=== PATIENT | male | born 1965 | race African-American/Black ===

== ENCOUNTER 2017-10-25 15:30 | Inpatient (IN) | payer MEDICARE, MEDICAID ==
--- NOTE | 2017-10-25 16:16 | ED Physician Chart ---
ED Chief Complaint/HPI - Patient Information Date Seen:: 10/25/17 Time Seen:: 15:45 Chief Complaint:: Agitation History of Present Illness:: onset x 3 days of agitation and hostile behavior; no report of trauma, SIs, H/As , neck pain, C/P, SOB, Abd. Pain, A/N/V/D/C, fever, chills, or urinary s/s Allergies:: Allergies Allergy/AdvReac Type Severity Reaction Status Date / Time WILLIAM Inhibitors Allergy Verified 10/25/17 15:49 Vitals:: Vital Signs - 8 hr 10/25/17 15:49 Temp 97.4 F HR 94 RR 16 BP 138/117 O2 Sat % 100 Historian:: Patient, EMS Review:: Nurse's Note Reviewed, Old Chart Reviewed, EMS run form Reviewed ED Review of Systems - Review of Systems General/Constitutional: No fever, No chills, No weight loss, No weakness, No diaphoresis, No edema, No loss of appetite Skin: No skin lesions, No rash, No bruising Head: No headache, No light-headedness Eyes: No loss of vision, No pain, No diplopia ENT: No earache, No nasal drainage, No sore throat, No tinnitus Neck: No neck pain, No swelling, No thyromegaly, No stiffness, No mass noted Cardio Vascular: No chest pain, No palpitations, No PND, No orthopnea, No edema Pulmonary: No SOB, No cough, No sputum, No wheezing GI: No nausea, No vomiting, No diarrhea, No pain, No melena, No hematochezia, No constipation, No hematemesis G/U: No dysuria, No frequency, No hematuria, No nacturia Musculoskeletal: No bone or joint pain, No back pain, No muscle pain Endocrine: No polyuria, No polydipsia Psychiatric: Prior psych history, Depression, Anxiety, No suicidal ideation, No homicidal ideation, No auditory hallucination, No visual hallucination Hematopoietic: No bruising, No lymphadenopathy Allergic/Immuno: No urticaria, No angioedema Neurological: No syncope, No focal symptoms, No weakness, No paresthesia, No headache, No seizure, No dizziness, No confusion, No vertigo ED Past Medical History - Past Medical History Obtainable: Yes Past Medical History: HTN, CAD, CVA/TIA, Dyslipidemia Family History: HTN Social History: Non Smoker, No Alcohol, No Drug Use, Single, Care Facility Surgical History: None Psychiatricy History: Depression, Bipolar Medication: Reviewed Family Medical History - Family Member Mother History Unknown: Yes ED Physical Exam - Physical Examination General/Constitutional: Awake, Well-developed, well-nourished, Alert, No distress, GCS 15, Non-toxic appearing, Ambulatory Head: Atraumatic Eyes: Lids, conjuctiva normal, PERRL, EOMI Skin: Nl inspection, No rash, No skin lesions, No ecchymosis, Well hydrated, No lymphadenopathy ENMT: External ears, nose nl, TM canals nl, Nasal exam nl, Lips, teeth, gums nl , Oropharynx nl, Tonsils nl Neck: Nontender, Full ROM w/o pain, No JVD, No nuchal rigidity, No bruit, No mass, No stridor Respiratory: Nl effort/Exclusion, Clear to Auscultation, No Wheeze/Rhonchi/Rales Cardio Vascular: No murmur, gallop, rubs, NL S1 S2, Carotid/Femoral/Distal pulses equal bilaterally Other Cardio Vascular comments:: Irregular Irregular Rhythm GI: No tenderness/rebounding/guarding, No organomegaly, No hernia, Normal BS's, Nondistended, No mass/bruits, No McBurney tenderness, Rectum exam nl : No CVA tenderness Extremities: No tenderness or effusion, Full ROM, normal strength in all extremities, No edema, Normal digits & nails Neuro/Psych: Alert/oriented, DTR's symmetric, Normal sensory exam, Normal motor strength, Judgement/insight normal, Mood normal, Normal gait, No focal deficits Other Neuro/Psych comments:: + Psychomotor Agitation; no SIs; Mood/Affect: Labile Misc: Normal back, No paraspinal tenderness ED Labs/Radiology/EKG Results - Lab Results Comments:: H/H: 10.9/32.6; WBC: 11.1; K+: 3.3 - Radiology Results Comments:: NAD - EKG Interpretations EKG Time:: 17:06 Rate & Rhythm: 76; Atrial Fibrillation Comments:: T-Wave Inversions; LVH ED Septic Shock - . Is Septic Shock (SBP<90, OR Lactate>4 mmol\L) present?: No - <6hrs of presentation: Vital Signs: Vital Signs - 8 hr 06/26/18 15:49 Temp 97.4 F HR 94 RR 16 BP 138/117 O2 Sat % 100 ED Reassessment (Disposition) - Reassessment Reassessment Condition:: Improved - Diagnosis Diagnosis:: Agitation; Psychosis; Medical Clearance; Atrial Fibrillation; Myocardial Ischemia; Hypokalemia; Leukocytosis; Anemia - Aftercare/Follow up Instructions Aftercare/Follow-Up Instructions:: Counseled pt regarding lab results/diagnosis & need follow up, Counseled pt & family regarding lab results/diagnosis & need follow up - Patient Disposition Discharge/Transfer:: Acute Care w/in this hosp Accepting Physician:: Dr. Sotomayor Time Called:: [id number] Time Responded:: 17:30 Admitted to:: Telemetry Spoke to:: Dr. Sotomayor Admitting Medical Physician:: Dr. Sotomayor Condition at Disposition:: Stable, Improved
[2017-10-25 17:04] LABS: % BASOPHILS 0.5 % (0.0-2.0); % EOSINOPHILS 0.8 % (0.0-5.0); % LYMPHOCYTES 13.6 % (20.0-50.0); % MONOCYTES 5.7 % (2.0-10.0); % NEUTROPHILS 79.4 % (40.0-80.0); BASOPHILE ABSOLUTE 0.1 Th/cumm (0-0.2); EOSINOPHILE ABSOLUTE 0.1 Th/cmm (0.1-0.4); HEMATOCRIT 32.6 % (41.0-60); HEMOGLOBIN 10.9 gm/dL (12-16); LYMPHOCYTE ABSOLUTE 1.5 Th/cmm (1.5-3.0); MEAN CELL VOLUME 88.1 fl (80-99); MEAN CORPUSCULAR HEMOGLOBIN 29.5 pg (26.0-30.0); MEAN CORPUSCULAR HGB CONC 33.5 pg (28.0-36.0); MEAN PLATELET VOLUME 7.6 fl; MONOCYTE ABSOLUTE 0.6 Th/cmm (0.3-1.0); NEUTROPHILE ABSOLUTE 8.8 Th/cmm (1.8-8.0); PLATELET COUNT 394 Th/cmm (150-400); RED CELL DISTRIBUTION WIDTH 14.2 % (11.5-20.0); WHITE BLOOD COUNT 11.1 Th/cmm (4.8-10.8)
[2017-10-25 17:20] LABS: ALB/GLOB RATIO 1.1 (1.0-1.8); ALBUMIN 3.9 gm/dL (4.2-5.5); ALKALINE PHOSPHATASE 39 U/L (34-104); ANION GAP 12.6 (7.0-16.0); BILIRUBIN,TOTAL 0.3 mg/dL (0.3-1.0); BUN - UREA NITROGEN 14 mg/dL (7-25); CALCIUM SERUM 9.6 mg/dL (8.6-10.3); CARBON DIOXIDE 26.7 mEq/L (21.0-31.0); CHLORIDE 101 mEq/L (98-107); CHOLESTEROL 90 mg/dL (<200); CREATININE - SERUM 1.2 mg/dL (0.7-1.3); GFR AFRICAN-AMERICAN > 60.0 ml/min (>90); GFR NON AFRICAN-AMERICAN > 60.0 ml/min; GLUCOSE 116 mg/dL (70-105); HDL -HIGH DENSITY LIPOPROTEIN 29 mg/dL (23-92); POTASSIUM SERUM 3.3 mEq/L (3.5-5.1); SALICYLATES (ASPIRIN) < 25.0 mg/L (30.0-100.0); SGOT 11 U/L (13-39); SGPT/ALT 4 U/L (7-52); SODIUM SERUM 137 mEq/L (136-145); TOTAL PROTEIN,SERUM 7.5 gm/dL (6.0-8.3); TRIGLYCERIDES 84 mg/dL (<150)
[2017-10-25 17:26] LABS: ACETAMINOPHEN < 10.0 ug/mL (10.0-30.0)
[2017-10-25] MEDS ORDERED: Potassium Chloride 20 mEq ER Tab PO ONE ×2 (18:39→18:42)
[2017-10-25] MEDS ORDERED: Haloperidol Lactate 5 mg/mL 1mL Vial IM STA (18:40)
[2017-10-25] MEDS ORDERED: Haloperidol Lactate 5 mg/mL 1mL Vial ONE (18:48)
[2017-10-25] MEDS ORDERED: Maalox 30 mL Cup PO PRN (21:39)
[2017-10-25] MEDS ORDERED: Magnesium Hydroxide (MOM) 30 mL UDC PO PRN (21:39)
[2017-10-25] MEDS ORDERED: Albuterol Nebulizer 2.5mg/3mL HHN PRN (22:41)
--- NOTE | 2017-10-26 07:14 | Diagnostic Imaging Report ---
Oral chest x-ray HISTORY: Cough The heart size appears somewhat generous. No focal pulmonary processes. No hilar or mediastinal abnormalities. IMPRESSION: 1. No acute abnormalities 2. Suggestion of a somewhat generous heart size
[2017-10-26] MEDS: Pantoprazole 40 mg EC Tab PO SCH (08:45)
[2017-10-26] MEDS: Multivitamin Tab PO SCH (08:45)
[2017-10-26] MEDS: Benztropine 1 MG TAB PO SCH (08:46)
[2017-10-26] MEDS ORDERED: SALMETEROL INH SCH (09:00)
[2017-10-26] MEDS ORDERED: FLUTICASONE INH SCH (09:00)
[2017-10-26] MEDS ORDERED: Budesonide 0.5 Mg/2 mL Ud HHN SCH (09:00)
[2017-10-26] MEDS: Budesonide 0.5 Mg/2 mL Ud HHN SCH (19:37)
[2017-10-26] MEDS: Atorvastatin Calcium 10 MG TAB PO SCH (21:37)
--- NOTE | 2017-10-27 01:00 | Psychosocial Evaluation ---
DATE OF SERVICE: PSYCHIATRIC INITIAL EVALUATION AND MENTAL STATUS EXAM THE PATIENT'S AGE: 51. SEX: Male. PHYSICIAN: Dr. Kurtz. CHIEF COMPLAINT: Aggressive behavior and hitting staff. HISTORY OF PRESENT ILLNESS: The patient is a 51-year-old male, who was transferred from [facility] because of increased agitation and aggression and the patient was hitting staff and was not able to follow directions. The patient has been extremely angry and in irritable mood. Also, has been restless. The patient also has been having difficulty with his mood. The patient also has been confused. The patient during the interview was going around with wheelchair pointing out with his finger to myself and sometimes imaginary objects and was increasingly angry and agitated. He also has difficulty expressing himself and feeling and he was actively responding. The patient also was not able to follow any directions. The patient also was paranoid. Also seems to be responding to stimuli. PAST PSYCHIATRIC HISTORY: The patient has history of what seems to be psychosis and agitation. The patient also seems to have history of schizoaffective disorder. MEDICATIONS: The patient is taking Abilify, Depakote, and Paxil. PAST MEDICAL HISTORY: The patient has atrial fib as well as myocardial ischemia hypokalemia, leukocytosis, and anemia according to our report. SOCIAL HISTORY: The patient lives in [facility]. No known alcohol or drug use. ALLERGIES: No known allergies. MENTAL STATUS EXAMINATION: The patient appears older than his stated age. On wheelchair. The patient denied any hallucinations or delusions, but actively responding to stimuli and the patient is agitated and in irritable mood. The patient denies any thoughts of suicide or homicide. The patient is alert and oriented to the situation, person and place, but not the date. Intact immediate, recent and remote memories. Poor insight. Poor judgment. He seems to be of low average intelligence based on his verbal ability. ASSESSMENT: PRIMARY DIAGNOSIS: Schizoaffective disorder, bipolar type, severe, with psychotic features. TREATMENT PLAN: We will monitor the patient's behavior and condition closely. We will start individual as well as milieu psychotherapy. We will monitor psychotropic medications. We will increase Abilify to 30 mg everyday and we will continue Depakote and Paxil and we will monitor Depakote blood level. ESTIMATED LENGTH OF STAY: 5-7 days. THE PATIENT'S STRENGTHS AND WEAKNESSES: The patient's strength is not clear at this time. Weaknesses is his poor impulse control and his agitation. AFTER DISCHARGE PLAN: The patient will be return to [facility] with plans for outpatient treatment and follow up there. CRITERIA FOR DISCHARGE: The patient will not be psychotic and will stabilize psychotropic medications and the patient will have better impulse control. JOB# [id number]
--- NOTE | 2017-10-27 06:14 | History & Physical ---
ADMIT DATE: 10/25/2017 ADMITTING PHYSICIAN: Madan Kurtz M.D. REASON FOR ADMISSION: Psychiatric disorder. HISTORY OF PRESENT ILLNESS: This 51-year-old male with underlying history of hyperlipidemia, seizure disorders, diabetes, mental disorder, was admitted for evaluation of underlying psychiatric ____. The patient said he is doing fine. Denies any chest pain. No palpitations or any dizziness or any other complaints. PAST MEDICAL HISTORY: As per HPI. PAST SURGICAL HISTORY: No ____. FAMILY HISTORY: Noncontributory. SOCIAL HISTORY: No reported alcohol, tobacco or street drug use. MEDICATIONS: Tylenol, Norvasc, Abilify, aspirin, Lipitor, Cogentin, Pulmicort, Depakote, Colace, Keppra, Ativan, milk of mag, metformin, Theragran, Protonix, Paxil, Ambien, ____. REVIEW OF SYSTEMS: No reported fever, no chills, no nausea, no abdominal pain, no diarrhea, no constipation, no chest pain, no headache, no double vision, no trouble speech or any other complaints. PHYSICAL EXAMINATION: VITAL SIGNS: Temperature 97.2, pulse 90, respirations ____, blood pressure ____ on room air. HEART: S1, S2 normal. LUNGS: Clear to auscultation. ABDOMEN: Soft, nontender. No guarding. No rebound. NEUROLOGIC: Awake, but somewhat confused, follows commands. EXTREMITIES: No edema. LABORATORY DATA: Available laboratory data has been reviewed. ASSESSMENT: Diabetes, hypertension, hyperlipidemia, seizure disorders, mental disorders, hypokalemia, and leukocytosis. PLAN: The patient will be continued on Glucophage, Keppra, Depakote ER, Pulmicort, Cogentin, Lipitor, Ecotrin, Norvasc, bronchodilator treatment. Monitor vital signs. Repeat EKG was ordered, which was normal sinus rhythm. Psych management per psychiatrist. The patient is medically stable for surgery [facility]. Thank you Dr. Kurtz for allowing to see this patient. JOB# [id number]
[2017-10-27] MEDS: Budesonide 0.5 Mg/2 mL Ud HHN SCH ×2 (06:51→18:27)
[2017-10-27] MEDS: Multivitamin Tab PO SCH (09:25)
[2017-10-27] MEDS: Benztropine 1 MG TAB PO SCH (09:26)
[2017-10-27] MEDS: Pantoprazole 40 mg EC Tab PO SCH (09:26)
[2017-10-27] MEDS: Atorvastatin Calcium 10 MG TAB PO SCH (21:17)
--- NOTE | 2017-10-27 21:51 | General Progress Note ---
Subjective - Review of Systems Service Date: 10/28/17 Subjective: Patient seen and examined doing better denied chest pain or palpitation Objective - Results Result Diagrams: 10/25/17 16:56 10/25/17 16:56 Recent Labs: Laboratory Last Values WBC 11.1 Th/cmm (4.8-10.8) H 10/25/17 16:56 RBC 3.70 Mil/cmm (4.30-5.70) L 10/25/17 16:56 Hgb 10.9 gm/dL (12-16) L 10/25/17 16:56 Hct 32.6 % (41.0-60) L 10/25/17 16:56 MCV 88.1 fl (80-99) 10/25/17 16:56 MCH 29.5 pg (26.0-30.0) 10/25/17 16:56 MCHC Differential 33.5 pg (28.0-36.0) 10/25/17 16:56 RDW 14.2 % (11.5-20.0) 10/25/17 16:56 Plt Count 394 Th/cmm (150-400) 10/25/17 16:56 MPV 7.6 fl 10/25/17 16:56 Neutrophils % 79.4 % (40.0-80.0) 10/25/17 16:56 Lymphocytes % 13.6 % (20.0-50.0) L 10/25/17 16:56 Monocytes % 5.7 % (2.0-10.0) 10/25/17 16:56 Eosinophils % 0.8 % (0.0-5.0) 10/25/17 16:56 Basophils % 0.5 % (0.0-2.0) 10/25/17 16:56 Sodium 137 mEq/L (136-145) 10/25/17 16:56 Potassium 3.3 mEq/L (3.5-5.1) L 10/25/17 16:56 Chloride 101 mEq/L (98-107) 10/25/17 16:56 Carbon Dioxide 26.7 mEq/L (21.0-31.0) 10/25/17 16:56 Anion Gap 12.6 (7.0-16.0) 10/25/17 16:56 BUN 14 mg/dL (7-25) 10/25/17 16:56 Creatinine 1.2 mg/dL (0.7-1.3) 10/25/17 16:56 Est GFR ( Amer) > 60.0 ml/min (>90) 10/25/17 16:56 Est GFR (Non-Af Amer) > 60.0 ml/min 10/25/17 16:56 BUN/Creatinine Ratio 11.7 10/25/17 16:56 Glucose 116 mg/dL (70-105) H 10/25/17 16:56 Hemoglobin A1c % 5.0 % (4.0-6.0) 10/25/17 16:56 Calcium 9.6 mg/dL (8.6-10.3) 10/25/17 16:56 Total Bilirubin 0.3 mg/dL (0.3-1.0) 10/25/17 16:56 AST 11 U/L (13-39) L 10/25/17 16:56 ALT 4 U/L (7-52) L 10/25/17 16:56 Alkaline Phosphatase 39 U/L (34-104) 10/25/17 16:56 Troponin I < 0.01 ng/mL (0.01-0.05) L 10/25/17 16:56 Total Protein 7.5 gm/dL (6.0-8.3) 10/25/17 16:56 Albumin 3.9 gm/dL (4.2-5.5) L 10/25/17 16:56 Globulin 3.6 gm/dL 10/25/17 16:56 Albumin/Globulin Ratio 1.1 (1.0-1.8) 10/25/17 16:56 Triglycerides 84 mg/dL (<150) 10/25/17 16:56 Cholesterol 90 mg/dL (<200) 10/25/17 16:56 LDL Cholesterol Direct 46 mg/dL (75-193) L 10/25/17 16:56 HDL Cholesterol 29 mg/dL (23-92) 10/25/17 16:56 TSH 0.69 uIU/ml (0.34-5.60) 10/25/17 16:16 Salicylates < 25.0 mg/L (30.0-100.0) L 10/25/17 16:56 Acetaminophen < 10.0 ug/mL (10.0-30.0) L 10/25/17 16:56 Ethyl Alcohol < 10 mg/dL (0-10) 10/25/17 16:56 - Physical Exam Vitals and I&O: Vital Signs Temp 97.6 F 10/27/17 20:00 Pulse 76 10/27/17 20:00 Resp 19 10/27/17 20:00 BP 129/76 10/27/17 20:00 Pulse Ox 94 10/27/17 20:00 Intake & Output 10/27/17 10/27/17 10/28/17 06:59 18:59 06:59 Intake Total 1080 Balance 1080 Intake: Oral 1080 Other: # Voids 2 Active Medications: Current Medications Acetaminophen (Tylenol) 650 mg PO Q4HR PRN PRN Reason: Mild Pain / Temp above 100 Stop: 12/24/17 21:38 Al Hydrox/Mg Hydrox/Simethicone (Maalox) 30 ml PO Q4HR PRN PRN Reason: GI DISTRESS Stop: 12/24/17 21:38 Albuterol Sulfate (Albuterol 2.5mg/3ml Neb Ud) 2.5 mg HHN Q6H PRN PRN Reason: Shortness of Breath Stop: 12/24/17 22:40 Amlodipine Besylate (Norvasc) 10 mg PO DAILY [facility] Stop: 12/25/17 08:59 Last Admin: 10/27/17 09:25 Dose: 10 mg Aripiprazole (Abilify) 30 mg PO HS [facility]; Protocol Stop: 12/25/17 20:59 Last Admin: 10/27/17 21:18 Dose: 30 mg Aspirin (Ecotrin) 81 mg PO DAILY [facility] Stop: 12/25/17 08:59 Last Admin: 10/27/17 09:26 Dose: 81 mg Atorvastatin Calcium (Lipitor) 10 mg PO HS [facility]; Protocol Stop: 12/25/17 20:59 Last Admin: 10/27/17 21:17 Dose: 10 mg Benztropine Mesylate (Cogentin) 1 mg PO DAILY [facility] Stop: 12/25/17 08:59 Last Admin: 10/27/17 09:26 Dose: 1 mg Bisacodyl (Dulcolax 10 Mg Supp) 10 mg RC DAILY PRN PRN Reason: Constipation Stop: 12/24/17 22:10 Budesonide (Pulmicort) 0.5 mg HHN BIDRT [facility] Stop: 12/25/17 18:59 Last Admin: 10/27/17 18:27 Dose: 0.5 mg Divalproex Sodium (Depakote Er) 500 mg PO BID [facility]; Protocol Stop: 12/25/17 08:59 Last Admin: 10/27/17 16:42 Dose: 500 mg Docusate Sodium (Colace) 100 mg PO Q12H PRN PRN Reason: Constipation Stop: 12/24/17 22:10 Levetiracetam (Keppra) 1,000 mg PO BID [facility] Stop: 12/25/17 08:59 Last Admin: 10/27/17 16:42 Dose: 1,000 mg Lorazepam (Ativan) 0.5 mg PO Q4HR PRN; Protocol PRN Reason: Anxiety Stop: 11/24/17 21:38 Last Admin: 10/26/17 15:02 Dose: 0.5 mg Magnesium Hydroxide (Milk Of Magnesia) 30 ml PO HS PRN PRN Reason: Constipation Metformin HCl (Glucophage) 500 mg PO BID [facility] Stop: 12/25/17 08:59 Last Admin: 10/27/17 16:42 Dose: 500 mg Multivitamins/Vitamin C (Theragran) 1 tab PO DAILY [facility] Stop: 12/25/17 08:59 Last Admin: 10/27/17 09:25 Dose: 1 tab Pantoprazole Sodium (Protonix) 40 mg PO DAILY [facility] Stop: 12/25/17 08:59 Last Admin: 10/27/17 09:26 Dose: 40 mg Paroxetine HCl (Paxil) 20 mg PO DAILY [facility]; Protocol Stop: 12/25/17 08:59 Last Admin: 10/27/17 09:25 Dose: 20 mg Zolpidem Tartrate (Ambien) 5 mg PO HS PRN PRN Reason: Insomnia Stop: 12/24/17 21:38 Cardiovascular: Regular rate Lungs: Clear to auscultation Assessment/Plan - Assessment Assessment: HTN HYPERLIPIDEMIA SEIZURE DISORDER NICOTINE DEPENDANCY - Plan Plan: Continue current treatment Smoking cessation discussed Psych managment per psychiatrist
[2017-10-28] MEDS: Budesonide 0.5 Mg/2 mL Ud HHN SCH ×2 (07:10→20:02)
[2017-10-28] MEDS: Multivitamin Tab PO SCH (08:57)
[2017-10-28] MEDS: Pantoprazole 40 mg EC Tab PO SCH (08:58)
[2017-10-28] MEDS: Benztropine 1 MG TAB PO SCH (09:02)
--- NOTE | 2017-10-28 19:12 | Progress Notes ---
DATE: SUBJECTIVE: Chart reviewed and the patient interviewed. Also discussed the patient's condition with the staff and reviewed records and labs. The patient is still extremely irritable and is extremely agitated. The patient also is having difficulty following directions and he is still going around with a wheelchair interrupting everybody he sees. He is getting agitated and aggressive when he does not get an answer. Also, during my interview, the patient kept pointing out with his finger towards me and he was not able to tell me his needs or express himself appropriately. The patient also still seems to be severely paranoid and is still suspicious. He also has difficulty following directions and gets more agitated and irritable when his staff or myself could not understand his conversation. ASSESSMENT: The patient is still agitated and also is still depressed. TREATMENT PLAN: I increased the Abilify yesterday to 30 mg everyday. We will continue same dose. Also, continue to adjust psychotropic medications and continue to work on behavioral modification and continue to follow up with his behavior closely. JOB# [id number]
[2017-10-28] MEDS: Atorvastatin Calcium 10 MG TAB PO SCH (21:08)
[2017-10-29] MEDS: Budesonide 0.5 Mg/2 mL Ud HHN SCH ×2 (06:26→19:34)
[2017-10-29] MEDS: Multivitamin Tab PO SCH (09:29)
[2017-10-29] MEDS: Benztropine 1 MG TAB PO SCH (09:29)
[2017-10-29] MEDS: Pantoprazole 40 mg EC Tab PO SCH (09:30)
--- NOTE | 2017-10-29 20:39 | Progress Notes ---
DATE: 10/29/2017 Case was discussed with staff of the patient, reviewed records. This is a 51-year-old male who was admitted on 10/25/2017 because of aggressive behavior. He was transferred from [facility] because of increasing agitation, aggression, hitting staff, unable to follow direction, extremely angry, irritable, restless, difficulty with mood and confused. He is on a wheelchair, unpredictable, impulsive, unable to carry on a conversation, difficulty expressing himself, responding to internal stimuli. He has a history of psychosis, agitation. The patient has been on Abilify 30 mg daily, Cogentin 1 mg daily and Depakote 500 mg twice a day. He is compliant with the medication with no side effects of Paxil 20 mg a day. Reviewed his medications for his medical condition. No side effects of the medication, no sedation, no nausea and no extrapyramidal symptoms. We will continue to work with the patient in group therapy, milieu therapy, adjust the medications as needed. JOB# [id number]
[2017-10-29] MEDS: Atorvastatin Calcium 10 MG TAB PO SCH (21:00)
--- NOTE | 2017-10-29 22:13 | Progress Notes ---
DATE: 10/29/2017 SUBJECTIVE: Chart reviewed and the patient interviewed. Also discussed the patient's condition with the staff and reviewed records and labs. The patient is easily agitated and he is still in angry and in irritable mood. The patient also is still suspicious and is still paranoid and argumentative. The patient also is still threatening others and he is still going around with wheelchair and needed lots of redirections. Otherwise, the patient started to comply with taking his medications with no side effects of medications. ASSESSMENT: The patient is still agitated and is still psychotic. TREATMENT PLAN: Continue monitoring his behavior and his condition closely. Also, continue to work on his psychosis and poor impulse control. Also, we will continue working on his anger and irritability. JOB# [id number]
[2017-10-30] MEDS: Budesonide 0.5 Mg/2 mL Ud HHN SCH ×2 (06:25→19:48)
[2017-10-30] MEDS: Pantoprazole 40 mg EC Tab PO SCH (08:49)
[2017-10-30] MEDS: Benztropine 1 MG TAB PO SCH (08:50)
[2017-10-30] MEDS: Multivitamin Tab PO SCH (08:50)
--- NOTE | 2017-10-30 20:29 | Progress Notes ---
DATE: 10/30/2017 SUBJECTIVE: Case discussed with staff of the patient, reviewed records. The patient seems to be irritable and aggressive. Continues to have poor insight. Continues to be agitated. Continues to have episodes of he is hitting staff, not following directions, very angry, restless, confused. He is on a wheelchair, so is a high fall risk, unpredictable, impulsive, unable to express himself, have hard time carrying a conversation, unable to make safe plan for self-care. Medication reviewed, no side effects to the medication, no sedation, no nausea, no extrapyramidal symptoms. We will continue outpatient group therapy, milieu therapy, and adjust the medications as needed. [facility]# [id number]
[2017-10-30] MEDS: Atorvastatin Calcium 10 MG TAB PO SCH (21:15)
[2017-10-31] MEDS: Budesonide 0.5 Mg/2 mL Ud HHN SCH ×2 (06:31→19:09)
--- NOTE | 2017-10-31 06:53 | Progress Notes ---
DATE: 10/31/2017 SUBJECTIVE: Chart reviewed and the patient interviewed. Also discussed the patient's condition with the staff and reviewed records and labs. The patient still has angry outbursts at times and other times seems to be in happy mood. Labile affect with severe mood swings. The patient also still has episodes of anger and easily irritable and agitated. Otherwise, the patient is compliant with taking his medications with no side effects. ASSESSMENT: The patient is still agitated and psychotic. TREATMENT PLAN: Continue to monitor his behavior and his condition closely. Also, continue adjusting psychotropic medications and working on behavioral modification. JOB# [id number]
[2017-10-31] MEDS: Pantoprazole 40 mg EC Tab PO SCH (09:29)
[2017-10-31] MEDS: Benztropine 1 MG TAB PO SCH (09:30)
[2017-10-31] MEDS: Multivitamin Tab PO SCH (09:30)
[2017-10-31] MEDS: Atorvastatin Calcium 10 MG TAB PO SCH (21:06)
--- NOTE | 2017-11-01 06:58 | Progress Notes ---
DATE: SUBJECTIVE: Chart reviewed and the patient interviewed. Also discussed the patient's condition with the staff and reviewed records and labs. The patient is still easily agitated, but it seems that it is slightly easier to redirect him. The patient is less irritable and less angry. Also, interacting more with peers and with others. The patient denies any thoughts of harming himself, but he is still wandering around with a wheelchair in an angry mood. Otherwise, the patient is compliant with taking his medications and seems to be slightly calmer and again easier to redirect. ASSESSMENT: The patient is still have episodes of agitation, but showing improvement. TREATMENT PLAN: Continue to monitor his behavior and continue to work on his poor impulse control and adjusting his medications. JOB# [id number]
[2017-11-01] MEDS: Budesonide 0.5 Mg/2 mL Ud HHN SCH ×2 (07:11→18:38)
[2017-11-01] MEDS: Multivitamin Tab PO SCH (08:37)
[2017-11-01] MEDS: Pantoprazole 40 mg EC Tab PO SCH (08:37)
[2017-11-01] MEDS: Benztropine 1 MG TAB PO SCH (08:39)
[2017-11-01] MEDS: Atorvastatin Calcium 10 MG TAB PO SCH (20:57)
[2017-11-02] MEDS: Budesonide 0.5 Mg/2 mL Ud HHN SCH ×2 (07:11→19:42)
[2017-11-02] MEDS: Multivitamin Tab PO SCH (09:15)
[2017-11-02] MEDS: Benztropine 1 MG TAB PO SCH (09:17)
[2017-11-02] MEDS: Pantoprazole 40 mg EC Tab PO SCH (11:15)
[2017-11-02] MEDS: Atorvastatin Calcium 10 MG TAB PO SCH (20:54)
--- NOTE | 2017-11-03 01:44 | Progress Notes ---
DATE: 11/02/2017 SUBJECTIVE: Chart reviewed and the patient interviewed. Also discussed the patient's condition with the staff and reviewed records and labs. The patient is still easily irritable and agitated, but seems to be less than before. The patient's affect is still labile. The patient is easier to redirect and he seems to be not as agitated. He also is compliant with taking his medications with no side effects of medications. ASSESSMENT: The patient still have episodes of agitation, but seems to be less than before. TREATMENT PLAN: Continue to monitor his behavior and his condition and continue adjusting psychotropic medications and continue to work on his poor impulse control. JOB# [id number]
[2017-11-03] MEDS: Budesonide 0.5 Mg/2 mL Ud HHN SCH ×2 (07:09→19:05)
[2017-11-03] MEDS: Benztropine 1 MG TAB PO SCH (09:59)
[2017-11-03] MEDS: Multivitamin Tab PO SCH (10:00)
[2017-11-03] MEDS: Pantoprazole 40 mg EC Tab PO SCH (10:48)
--- NOTE | 2017-11-03 11:14 | General Progress Note ---
Subjective - Review of Systems Service Date: 11/01/17 Subjective: Patient seen and examined doing better denied chest pain or palpitation or any other complaints Objective - Results Result Diagrams: 10/25/17 16:56 10/25/17 16:56 Recent Labs: Laboratory Last Values WBC 11.1 Th/cmm (4.8-10.8) H 10/25/17 16:56 RBC 3.70 Mil/cmm (4.30-5.70) L 10/25/17 16:56 Hgb 10.9 gm/dL (12-16) L 10/25/17 16:56 Hct 32.6 % (41.0-60) L 10/25/17 16:56 MCV 88.1 fl (80-99) 10/25/17 16:56 MCH 29.5 pg (26.0-30.0) 10/25/17 16:56 MCHC Differential 33.5 pg (28.0-36.0) 10/25/17 16:56 RDW 14.2 % (11.5-20.0) 10/25/17 16:56 Plt Count 394 Th/cmm (150-400) 10/25/17 16:56 MPV 7.6 fl 10/25/17 16:56 Neutrophils % 79.4 % (40.0-80.0) 10/25/17 16:56 Lymphocytes % 13.6 % (20.0-50.0) L 10/25/17 16:56 Monocytes % 5.7 % (2.0-10.0) 10/25/17 16:56 Eosinophils % 0.8 % (0.0-5.0) 10/25/17 16:56 Basophils % 0.5 % (0.0-2.0) 10/25/17 16:56 Sodium 137 mEq/L (136-145) 10/25/17 16:56 Potassium 3.3 mEq/L (3.5-5.1) L 10/25/17 16:56 Chloride 101 mEq/L (98-107) 10/25/17 16:56 Carbon Dioxide 26.7 mEq/L (21.0-31.0) 10/25/17 16:56 Anion Gap 12.6 (7.0-16.0) 10/25/17 16:56 BUN 14 mg/dL (7-25) 10/25/17 16:56 Creatinine 1.2 mg/dL (0.7-1.3) 10/25/17 16:56 Est GFR ( Amer) > 60.0 ml/min (>90) 10/25/17 16:56 Est GFR (Non-Af Amer) > 60.0 ml/min 10/25/17 16:56 BUN/Creatinine Ratio 11.7 10/25/17 16:56 Glucose 116 mg/dL (70-105) H 10/25/17 16:56 Hemoglobin A1c % 5.0 % (4.0-6.0) 10/25/17 16:56 Calcium 9.6 mg/dL (8.6-10.3) 10/25/17 16:56 Total Bilirubin 0.3 mg/dL (0.3-1.0) 10/25/17 16:56 AST 11 U/L (13-39) L 10/25/17 16:56 ALT 4 U/L (7-52) L 10/25/17 16:56 Alkaline Phosphatase 39 U/L (34-104) 10/25/17 16:56 Troponin I < 0.01 ng/mL (0.01-0.05) L 10/25/17 16:56 Total Protein 7.5 gm/dL (6.0-8.3) 10/25/17 16:56 Albumin 3.9 gm/dL (4.2-5.5) L 10/25/17 16:56 Globulin 3.6 gm/dL 10/25/17 16:56 Albumin/Globulin Ratio 1.1 (1.0-1.8) 10/25/17 16:56 Triglycerides 84 mg/dL (<150) 10/25/17 16:56 Cholesterol 90 mg/dL (<200) 10/25/17 16:56 LDL Cholesterol Direct 46 mg/dL (75-193) L 10/25/17 16:56 HDL Cholesterol 29 mg/dL (23-92) 10/25/17 16:56 TSH 0.69 uIU/ml (0.34-5.60) 10/25/17 16:16 Salicylates < 25.0 mg/L (30.0-100.0) L 10/25/17 16:56 Acetaminophen < 10.0 ug/mL (10.0-30.0) L 10/25/17 16:56 Ethyl Alcohol < 10 mg/dL (0-10) 10/25/17 16:56 RPR NONREACTIVE (NONREACTIVE) 10/25/17 16:16 - Physical Exam Vitals and I&O: Vital Signs Temp 97.6 F 11/03/17 06:30 Pulse 60 11/03/17 09:59 Resp 18 11/03/17 07:12 BP 133/60 11/03/17 09:59 Pulse Ox 100 11/03/17 07:12 Active Medications: Current Medications Acetaminophen (Tylenol) 650 mg PO Q4HR PRN PRN Reason: Mild Pain / Temp above 100 Stop: 12/24/17 21:38 Al Hydrox/Mg Hydrox/Simethicone (Maalox) 30 ml PO Q4HR PRN PRN Reason: GI DISTRESS Stop: 12/24/17 21:38 Albuterol Sulfate (Albuterol 2.5mg/3ml Neb Ud) 2.5 mg HHN Q6H PRN PRN Reason: Shortness of Breath Stop: 12/24/17 22:40 Amlodipine Besylate (Norvasc) 10 mg PO DAILY [facility] Stop: 12/25/17 08:59 Last Admin: 11/03/17 09:59 Dose: 10 mg Aripiprazole (Abilify) 30 mg PO HS [facility]; Protocol Stop: 12/25/17 20:59 Last Admin: 11/02/17 20:54 Dose: 30 mg Aspirin (Ecotrin) 81 mg PO DAILY [facility] Stop: 12/25/17 08:59 Last Admin: 11/03/17 10:00 Dose: 81 mg Atorvastatin Calcium (Lipitor) 10 mg PO HS [facility]; Protocol Stop: 12/25/17 20:59 Last Admin: 11/02/17 20:54 Dose: 10 mg Benztropine Mesylate (Cogentin) 1 mg PO DAILY [facility] Stop: 12/25/17 08:59 Last Admin: 11/03/17 09:59 Dose: 1 mg Bisacodyl (Dulcolax 10 Mg Supp) 10 mg RC DAILY PRN PRN Reason: Constipation Stop: 12/24/17 22:10 Budesonide (Pulmicort) 0.5 mg HHN BIDRT [facility] Stop: 12/25/17 18:59 Last Admin: 11/03/17 07:09 Dose: Not Given Divalproex Sodium (Depakote Er) 500 mg PO BID [facility]; Protocol Stop: 12/25/17 08:59 Last Admin: 11/03/17 09:58 Dose: 500 mg Docusate Sodium (Colace) 100 mg PO Q12H PRN PRN Reason: Constipation Stop: 12/24/17 22:10 Levetiracetam (Keppra) 1,000 mg PO BID [facility] Stop: 12/25/17 08:59 Last Admin: 11/03/17 10:03 Dose: 1,000 mg Magnesium Hydroxide (Milk Of Magnesia) 30 ml PO HS PRN PRN Reason: Constipation Metformin HCl (Glucophage) 500 mg PO BID [facility] Stop: 12/25/17 08:59 Last Admin: 11/03/17 10:00 Dose: 500 mg Multivitamins/Vitamin C (Theragran) 1 tab PO DAILY [facility] Stop: 12/25/17 08:59 Last Admin: 11/03/17 10:00 Dose: 1 tab Pantoprazole Sodium (Protonix) 40 mg PO DAILY [facility] Stop: 12/25/17 08:59 Last Admin: 11/03/17 10:48 Dose: 40 mg Paroxetine HCl (Paxil) 20 mg PO DAILY [facility]; Protocol Stop: 12/25/17 08:59 Last Admin: 11/03/17 10:48 Dose: 20 mg Cardiovascular: Regular rate Lungs: Clear to auscultation Assessment/Plan - Assessment Assessment: HTN HYPERLIPIDEMIA SEIZURE DISORDER NICOTINE DEPENDANCY - Plan Plan: Continue current treatment Smoking cessation discussed Psych managment per psychiatrist Nutritional Asmnt/Malnutr-PDOC - Dietary Evaluation Malnutrition Findings (Please click <Entered> for more info): Nutritional Asmnt/Malnutrition Start: 10/28/17 13: 52 Text: Status: Complete Freq: Protocol: Document 10/28/17 13:52 FATOUG (Rec: 10/28/17 14:02 MIRANDA [email or web address]) Nutritional Asmnt/Malnutrition Patient General Information Nutritional Screening Moderate Risk Diagnosis psychosis Pertinent Medical Hx/Surgical Hx HTN, CAD, CVA/TIA, dyslipidemia, depression, bipolar Subjective Information Pt seen on wheelchair in hallway, confused, wanted go home. Pt stated good appetite. Per EMR, PO intake 100% of meals. Current Diet Order/ Nutrition Support [facility] soft chopped, ELISEO, CCHO Pertinent Medications colace, glucophage, theragran, protonix Pertinent Labs 10/25 K 3.3, glucose 116, A1c 5 .0 Nutritional Hx/Data Height 1.8 m Height (Calculated Centimeters) 180.3 Current Weight (lbs) 72.575 kg Weight (Calculated Kilograms) 72.6 Weight (Calculated Grams) 34775.8 [place] Body Weight 172 Body Mass Index (BMI) 22.3 Weight Status Approriate GI Symptoms GI Symptoms None Last BM no BM Difficult in: None Skin Integrity/Comment: intact Current %PO Good (75-100%) Estimated Nutritional Goals BEE in Kcals: Using Current wt Calories/Kcals/Kg 25-30 Kcals Calculated 1213-7767 Protein: Using Current wt Protein g/k Protein Calculated 78 Fluid: ml 1950-2340ml (1ml/kcal) Nutritional Problem No current Nutrition Prob Problem N/A Malnutrition Alert Is there a minimum of two criteria No selected? Query Text:Check all the applicable criteria. A minimum of two criteria are recommended for diagnosis of either severe or non-severe malnutrition. Malnutrition Related to Morbid Obesity Malnutrition related to morbid obesity No Intervention/Recommendation Comments 1. Consider discontinue CCHO diet since no hx of DM and A1c 5.0 2. Monitor PO intake, wt, labs and skin integrity 3. F/U as low risk in 7 days, 11/04 Expected Outcomes/Goals Expected Outcomes/Goals 1. PO intake to meet at least 75% of nutritional needs. 2. Wt stability, skin to remain intact, labs to approach WNL.
--- NOTE | 2017-11-03 18:46 | Discharge Summary ---
DATE OF DISCHARGE: 11/03/2017 DATE OF DISCHARGE: 11/03/2017 PATIENT'S AGE: 51. SEX: Male. PHYSICIAN: Dr. Kurtz. PRIMARY DIAGNOSIS: Schizoaffective disorder, bipolar type ____ with psychotic features. REASON FOR HOSPITALIZATION: The patient was admitted to the hospital because of his agitation and irritability. The patient was living in a [facility]. The patient was increasingly agitated and irritable and aggressive with the staff. He also was not able to follow any of staff directions. He also was angry and suspicious and paranoid. HOSPITAL COURSE: The patient continued to be in angry and in irritable mood. The patient also was suspicious and was paranoid. The patient needed lots of redirections. He also was easily agitated. The patient was started on Abilify and the dose increased to 30 mg every day. Also, continued to take Depakote and dose adjusted to 500 mg twice a day. Gradually, the patient's affect was brighter. The patient was less agitated and less irritable. The patient also interacted more with peers and with others. The patient was discharged and the senior windows systems administrator asked the patient go to [facility] and the patient was discharged there. Physical exam of the patient showed no major medical problems. Labs also ordered and no major problems. Also, Depakote blood level was ordered, but results not back in the chart yet for unknown reason, but we will follow up on that. AFTER DISCHARGE PLANS: The patient discharged from the hospital and went to [facility] with plans for followup there. DISCHARGE ACTIVITY: No restrictions. DISCHARGE DIET: Regular. Expected outcome after discharge ____ the patient will continue with his treatment and with discharge plan. JOB# [id number]
[2017-11-03] MEDS: Atorvastatin Calcium 10 MG TAB PO SCH (20:28)
[2017-11-04] MEDS: Budesonide 0.5 Mg/2 mL Ud HHN SCH (07:11)
[2017-11-04] MEDS: Pantoprazole 40 mg EC Tab PO SCH (08:15)
[2017-11-04] MEDS: Multivitamin Tab PO SCH (08:15)
[2017-11-04] MEDS: Benztropine 1 MG TAB PO SCH (08:17)
--- NOTE | 2017-11-05 16:52 | Discharge Summary ---
DATE OF DISCHARGE: 11/04/2017 AGE: 51. SEX: Male. PHYSICIAN: Dr. Kurtz. The patient was supposed to be discharged yesterday to [place]. I dictated discharge summary yesterday. No changes in patient's condition, but the patient did not leave yesterday because he was not accepted in [place]. The patient accepted on 11/04/2017 to go to [facility] where he originally came from. The patient discharged from the hospital to [place]. No changes in his condition upon discharge. JOB# [id number]
--- NOTE | 2017-11-06 03:41 | Progress Notes ---
DATE: 11/03/2017 Chart reviewed and the patient interviewed. Also discussed the patient's condition with the staff and reviewed records and labs. The patient is calm, quiet, cooperative and compliant with taking his medications. Plan is to discharge the patient today to [place] and clinical case manager informed me that [place] will take the patient there. I did dictate discharge summary today, but if the patient will not be discharged for reasons out of my control, the patient will remain in the hospital until further plans for his discharge. JOB# [id number]
== END 2017-11-04 11:45 | DRG 885 ==
LOC: ER 15:30 → GERO2 19:30 → GERO 10-27 16:51
PROVIDERS: ADMIT Psychiatry & Neurology Psychiatry; ATTEND Psychiatry & Neurology Psychiatry
DX: F25.0 Schizoaffective disorder, bipolar type (principal); E11.9 Type 2 diabetes mellitus without complications; I10 Essential (primary) hypertension; E78.5 Hyperlipidemia, unspecified; G40.909 Epilepsy, unspecified, not intractable, without status epilepticus; E87.6 Hypokalemia; R29.810 Facial weakness; I25.10 Atherosclerotic heart disease of native coronary artery without angina pectoris; I48.91 Unspecified atrial fibrillation; D64.9 Anemia, unspecified; D72.829 Elevated white blood cell count, unspecified; I25.9 Chronic ischemic heart disease, unspecified; F29 Unspecified psychosis not due to a substance or known physiological condition; F17.200 Nicotine dependence, unspecified, uncomplicated; Z86.73 Personal history of transient ischemic attack (TIA), and cerebral infarction without residual deficits; Z82.49 Family history of ischemic heart disease and other diseases of the circulatory system
CPT/HCPCS: 36415-UA; 71045-TC; 80053-TC; 80061-TC; 80320-TC; 80329-TC; 83036-90; 84443-TC; 84484-TC; 85025-TC; 86592-TC; 93005; 94640; 94760; J1200; J1630; J2060; Z7610